=== PATIENT | male | born 2000 | race Caucasian/White ===

== ENCOUNTER 2024-07-18 11:05 | Inpatient (IN) | payer BC ==
[~2024-07-18] VITALS: Ht 180.3 cm; Wt 67.1 kg
[2024-07-18 12:22] LABS: BASOPHILS % (AUTO) 0.2 % (0.0-2.0); EOSINOPHILS % (AUTO) 0.8 % (1.0-6.0); HEMATOCRIT 44.4 % (41-53); HEMOGLOBIN 14.8 g/dL (13.5-17.5); LYMPHOCYTES # (AUTO) 0.9 K/uL (1.0-4.8); LYMPHOCYTES % (AUTO) 12.1 % (22.0-44.0); MEAN CORPUSCULAR HEMOGLOBIN 28.8 pg (26.0-34.0); MEAN CORPUSCULAR HGB CONC 33.3 G/dL (31.0-37.0); MEAN CORPUSCULAR VOLUME 86 fL (80-100); MONOCYTES # (AUTO) 0.3 K/uL (0.1-1.0); MONOCYTES % (AUTO) 4.8 % (2.0-9.0); NEUTROPHILS # (AUTO) 5.8 K/uL (1.8-7.7); NEUTROPHILS % (AUTO) 82.1 % (40.0-70.0); PLATELET COUNT (AUTO) 242 K/uL (150-450); RED BLOOD CELL COUNT(AUTO) 5.14 MIL/uL (4.50-5.90); RED CELL DISTRIBUTION WIDTH 14.7 % (11.5-14.5)
[2024-07-18 12:29] LABS: ANION GAP 11 mmol/L (8-16); CARBON DIOXIDE 26 mmol/L (22-29); CHLORIDE 104 mmol/L (98-107); CREATININE 1.05 mg/dL (0.60-1.30); GLOMERULAR FILTR. RATE CALC > 60 mL/min (>60); GLUCOSE,RANDOM 112 mg/dL (70-110); POTASSIUM 4.1 mmol/L (3.5-5.1); SODIUM SERUM 141 mmol/L (136-145); UREA NITROGEN, BLOOD 12 mg/dL (7-18)
[2024-07-18 13:55] LABS: WHITE BLOOD COUNT (AUTO) 7.1 K/uL (4.5-11.0)
[2024-07-18 14:06] LABS: ALCOHOL, BLOOD (SERUM) < 3 mg/dL (0-10)
[2024-07-18 17:47] LABS: COVID AG,FIA SOURCE NASAL SWAB
[2024-07-18 17:52] LABS: SALICYLATE < 2.8 mg/dL (2.8-20.0)
[2024-07-18 17:56] LABS: ACETAMINOPHEN < 2 mcg/mL (10-30)
[2024-07-18 18:08] LABS: SARS-COV2 (COVID) ANTIGEN,FIA Negative (Negative)
[2024-07-18 18:09] LABS: ALCOHOL, URINE DRUG SCREEN NEGATIVE (NEGATIVE); AMPHET/METH SCREEN,URINE NEGATIVE (NEGATIVE); BARBITURATE SCREEN, URINE NEGATIVE (NEGATIVE); BENZODIAZEPINES SCREEN,URINE NEGATIVE (NEGATIVE); CANNABINOID SCREEN,URINE POSITIVE (NEGATIVE); COCAINE SCREEN,URINE NEGATIVE (NEGATIVE); METHADONE SCREEN, URINE NEGATIVE (NEGATIVE); OPIATE SCREEN,URINE NEGATIVE (NEGATIVE); PHENCYCLIDINE SCREEN,URINE NEGATIVE (NEGATIVE)
[2024-07-18] MEDS ORDERED: HALOPERIDOL 5 MG TABLET PO PRN (18:15)
[2024-07-19] MEDS: LORazepam 2 MG TABLET PO PRN (01:06)
[2024-07-19] MEDS: ZOLPIDEM TARTRATE 10 MG TABLET PO PRN (01:28)
[2024-07-19 06:19] VITALS: BP 135/63; PULSE 60; RESP 18; TEMP 98.2; O2SAT 97
[2024-07-19] MEDS ORDERED: NICOTINE 14 MG/24 HOUR PATCH TD PRN (06:45)
[2024-07-19] MEDS ORDERED: MAGNESIUM HYDROXIDE SUSPENSION 30 ML UDCUP PO PRN (06:45)
[2024-07-19] MEDS ORDERED: PETROLATUM,WHITE 28 GM JELLY TP PRN (06:45)
[2024-07-19] MEDS ORDERED: GuaiFENesin/D-METHORPHAN [SUGAR-FREE] 200-20MG/10 ML SYRUP UDCUP PO PRN (06:45)
[2024-07-19] MEDS ORDERED: MAG HYDROX/ALUMINUM HYD/SIMETH ES 30 ML SUSPENSION UDCUP PO PRN (06:45)
[2024-07-19] MEDS ORDERED: ALBUTEROL SULFATE HFA 90 MCG/PUFF 8 GM INHALER IH PRN (06:45)
[2024-07-19] MEDS ORDERED: CloNIDine HCL 0.1 MG TABLET PO PRN (06:45)
[2024-07-19] MEDS ORDERED: DOCUSATE SODIUM 100 MG CAPSULE PO PRN (06:45)
[2024-07-19] MEDS ORDERED: ONDANSETRON 4 MG TABLET PO PRN (06:45)
[2024-07-19] MEDS ORDERED: LOPERAMIDE HCL 2 MG CAPSULE PO PRN (06:45)
[2024-07-19] MEDS ORDERED: ACETAMINOPHEN 325 MG TABLET PO PRN (06:45)
[2024-07-19 08:00] VITALS: BP 160/46; PULSE 83; RESP 18; TEMP 97.1; O2SAT 96
[2024-07-19] MEDS: ESCITALOPRAM OXALATE 10 MG TABLET PO SCH (14:48)
[2024-07-19 23:52] VITALS: BP 143/80; PULSE 70; RESP 18; TEMP 97.7; O2SAT 98
[2024-07-20 09:01] LABS: HEMOGLOBIN A1C 5.8 % (3.8-5.6)
[2024-07-20 09:12] LABS: THYROID STIMULATING HORMONE 1.47 uIU/mL (0.36-3.74)
[2024-07-20 10:32] VITALS: BP 130/64; PULSE 99; RESP 16; TEMP 97.6; O2SAT 98
[2024-07-20 10:49] LABS: CHOL/HDL RATIO 1.8 (4.2-7.3)
[2024-07-20] MEDS ORDERED: ESCI-8 PO ×2 (13:00→14:02)
== END 2024-07-20 17:40 | disposition home or self-care (01) | DRG 885 ==
LOC: EMS 11:05 → 3EI 21:22
PROVIDERS: ADMIT Psychiatry & Neurology Child & Adolescent Psychiatry; ATTEND Psychiatry & Neurology Child & Adolescent Psychiatry
PROC: GZ58ZZZ Individual Psychotherapy, Cognitive-Behavioral (ICD-10-PCS; principal; 2024-07-18)
DX: F33.2 Major depressive disorder, recurrent severe without psychotic features (principal); R45.851 Suicidal ideations; F10.10 Alcohol abuse, uncomplicated; G47.00 Insomnia, unspecified; R73.9 Hyperglycemia, unspecified; Z20.822 Contact with and (suspected) exposure to COVID-19; F12.10 Cannabis abuse, uncomplicated; Y90.9 Presence of alcohol in blood, level not specified; I10 Essential (primary) hypertension; Z88.6 Allergy status to analgesic agent
CPT/HCPCS: 80048; 80061; 80307; 83036; 84443; 85025; 99285; G0480; G0481